=== PATIENT | female | born 1970 | race Caucasian/White ===

== ENCOUNTER 2017-09-11 16:35 | Emergency (ER) | payer MEDICAID ==
[2017-09-11 16:53] VITALS: BP 127/77; PULSE 69; RESP 18; TEMP 98.3; O2SAT 100
--- NOTE | 2017-09-11 17:47 | C.PDOC ---
History Of Present Illness 47 y/o F currently being treated by audio visual equipment rental clerk for facial rash p/w facial warmth, itchiness, and erythema. Patient states she began using creams/lotions prescribed by audio visual equipment rental clerk last night and when she awoke today, the area was erythematous, itchy, and warm. She denies fever, discharge, dyspnea, drooling. Time Seen by Provider: 09/11/17 17:18 Chief Complaint (Nursing): Abnormal Skin Integrity Past Medical History Vital Signs: Last Vital Signs Temp 98.3 F 09/11/17 16:48 Pulse 69 09/11/17 16:48 Resp 18 09/11/17 16:48 BP 127/77 09/11/17 16:48 Pulse Ox 100 09/11/17 16:48 - Medical History PMH: Hypothyroidism Denies: Diabetes, Hepatitis, HIV, HTN, Chronic Kidney Disease, Seizures, Sexually Transmitted Disease Family History: States: Unknown Family Hx - Social History Hx Alcohol Use: No Hx Substance Use: No - Immunization History Hx Tetanus Toxoid Vaccination: No Hx Influenza Vaccination: No Hx Pneumococcal Vaccination: No Review Of Systems Except As Marked, All Systems Reviewed And Found Negative. Constitutional: Negative for: Fever Respiratory: Negative for: Shortness of Breath Physical Exam - Physical Exam Additional Physical Exam Comments: Gen: NAD Head: NC Eyes: No scleral icterus ENT: No drooling Neck: Supple CV: Regular rate Resp: No accessory muscle use. No stridor. Skin: Facial erythema superimposed on chronic facial rash. No vesicles, bullae, or discharge. Neuro: Alert. ED Course And Treatment O2 Sat by Pulse Oximetry: 100 Medical Decision Making Medical Decision Making: Will treat as allergic reaction with Benadryl/Pepcid. Instructed to follow back up with audio visual equipment rental clerk for further treatment decisions. Instructed to return to ED immediately for fever, dyspnea, vomiting, or any other problem. Disposition - Disposition Disposition: HOME/ ROUTINE Disposition Time: 17:47 Condition: STABLE Prescriptions: DiphenhydrAMINE [Benadryl] 1 cap PO Q8 #25 cap Famotidine [Pepcid] 1 tab PO BID #14 tab Instructions: Yenifer (YVES) - Clinical Impression Clinical Impression: Facial rash
== END 2017-09-11 18:00 | disposition home or self-care (01) ==
LOC: C.ER 16:35
DX: R21 Rash and other nonspecific skin eruption (principal)